=== PATIENT | female | born 1965 | race Caucasian/White ===

== ENCOUNTER 2021-02-01 15:26 | Day surgery (SDC) | payer OTHER ==
[2021-02-01] MEDS ORDERED: Sodium Chloride 0.9(Preservative Free) 10 ML IJ ONE (15:27)
[2021-02-01] MEDS ORDERED: BUPIVACAINE 0.5% VIAL IJ ONE (15:27)
[2021-02-01] MEDS ORDERED: Depo-Medrol 40 MG/ML IM ONE (15:27)
[2021-02-01] MEDS ORDERED: Xylocaine 1% Vial 30 ML PF IJ ONE (15:27)
--- NOTE | 2021-02-01 18:53 | XRAY ---
24 seconds fluoroscopy time in surgery for greater trochanter injection of the right hip.
--- NOTE | 2021-02-01 18:53 | XRAY ---
25 seconds fluoroscopy time in surgery for right L4-S1 transforaminal ALMITA.
== END 2021-02-01 17:59 | disposition home or self-care (01) ==
LOC: SDC-PAIN 15:26
PROVIDERS: ATTEND Psychiatry & Neurology Pain Medicine
DX: M70.61 Trochanteric bursitis, right hip (principal); M54.16 Radiculopathy, lumbar region; I10 Essential (primary) hypertension; I50.9 Heart failure, unspecified; K21.9 Gastro-esophageal reflux disease without esophagitis; Z79.899 Other long term (current) drug therapy
CPT/HCPCS: 20610; 64483; 64484; 72100; 73501; 77002; 77003; J1030; J2001; Q9966